=== PATIENT | female | born 1965 | race Caucasian/White ===

== ENCOUNTER 2016-05-15 08:28 | Emergency (ER) ==
[2016-05-15] MEDS ORDERED: NS 3,000 ML IV ONE (08:52)
--- NOTE | 2016-05-15 08:59 | PROVIDER DOCUMENTATION ---
HPI-Syncope/Dizziness - General Chief Complaint: Syncope Stated Complaint: POSS DEHYDRATION Time Seen by Provider: 05/15/16 08:48 Source: patient Allergies/Adverse Reactions: Patient Allergies Allergy/AdvReac Type Severity Reaction Status Date / Time No Known Allergies Allergy Verified 09/18/15 06:16 Home Medications: Home Medication List Medication Instructions Recorded Confirmed Last Taken Type No Home Medications 09/08/15 05/15/16 Unknown History - History of Present Illness-Syncope/Dizzy Nature of Presenting Problem: Pt vomited 7 times yesterday and had nothing to drink plus had 2 diarrhea stools then this morning while in the shower got light-headed so sat down and the passed out 2x when her came in. She thinks that she is just dehydrated Review of Systems - Adult - REVIEW OF SYSTEMS - ADULT Constitutional: denies: chills, fever Eyes: denies: discharge, decreased vision Ears, Nose, Mouth & Throat: denies: ear pain, epistaxis, throat pain Cardiovascular: denies: chest pain, irregular heart rate Respiratory: denies: chronic cough, hemoptysis Gastrointestinal: denies: hematemesis, difficulty swallowing, rectal bleeding Genitourinary: denies: discharge, frequent UTI's, hematuria Musculoskeletal: denies: bone pain, joint pain, muscle weakness Integumentary: denies: itching, nail changes, rash Neurological: denies: loss of balance, paresthesia, slurred speech Endocrine: denies: goiter, cold intolerance, heat intolerance Hematologic/Lymphatic: denies: low blood count, lymphedema Allergic/Immunologic: denies: eczema, frequent infections, hives Past History - Adult - PAST MEDICAL HISTORY-ADULT Review of Records: reports: Nursing Assessment Review, Medications Reviewed - PRIOR SURGERIES/PROCEDURES Surgical/Procedure History: reports: other (augmentation mammoplasty and uterine ablation) - SOCIAL HISTORY Smoking: denies Substance Use: none/never Alcohol Use Frequency: never Physical Exam-General - CONSTITUTIONAL General Appearance: appears well, no apparent distress - EYES Eyes: PERRL/EOMI, pink conjunctivae - HEAD, EARS, NOSE, MOUTH & THROAT HENMT: normocephalic/atraumatic, moist mucous membranes, normal ENT inspection - NECK Neck: non-tender, full range of motion, supple, normal inspection - RESPIRATORY Respiratory: chest non-tender, lungs clear, normal breath sounds, no pleuratic chest pain, no respiratory distress, no accessory muscle use - CARDIOVASCULAR Cardiovascular: normal peripheral pulses, regular rate, rhythm, no edema, no gallop, no JVD, no murmur - CHEST (BREASTS) Chest/Breast: no tenderness - GASTROINTESTINAL (ABDOMEN) Abdominal Exam: normal bowel sounds, non tender, soft, no organomegaly - LYMPHATIC Lymphatic: no adenopathy, axilla node tender - MUSCULOSKELETAL Back Exam: normal inspection, no CVA tenderness, no vertebral tenderness, CVA tenderness Extremity: normal range of motion, non-tender, normal gait, normal inspection, no pedal edema - SKIN Integumentary: normal color, warm/dry, abrasion(s) - NEUROLOGIC Neurologic: assembler radio and electrical II-XII nml as tested, grossly normal, no motor/sensory deficits , abnormal cerebellar tests - PSYCHIATRIC Psych/Mental Status: normal mood/affect, normal thought content, normal thought process, oriented x 3 Progress - PLAN OF CARE/RESULTS Progress/Plan/Lab Results: Laboratory Tests 05/15/16 05/15/16 05/15/16 09:11 09:11 09:11 WBC 9.54 RBC 4.88 Hgb 15.4 Hct 45.2 MCV 92.6 MCH 31.6 H MCHC 34.1 RDW Std Deviation 13.4 Plt Count 186 MPV 10.6 H Immature Gran % (Auto) 0.2 Neut % (Auto) 91.1 H Lymph % (Auto) 4.1 L [place] % (Auto) 4.0 Eos % (Auto) 0.4 Baso % (Auto) 0.2 Immature Gran # (Auto) 0.02 Neut # (Auto) 8.69 H Lymph # (Auto) 0.39 L [place] # (Auto) 0.38 Eos # (Auto) 0.04 Baso # (Auto) 0.02 D-Dimer 0.13 Sodium 132 L Potassium 3.9 Chloride 96 L Carbon Dioxide 20 L Anion Gap 16 BUN 19 Creatinine 0.7 Estimated GFR/1.73 m2 > 60 BUN/Creatinine Ratio 27 Glucose 121 H Calculated Osmolality 268 Calcium 8.5 L Total Bilirubin 0.88 AST 27 ALT 18 Alkaline Phosphatase 43 Total Protein 7.3 Albumin 3.9 Globulin 3.4 Albumin/Globulin Ratio 1.1 Urine Source Urine Color Urine Turbidity Urine pH Ur Specific [place] Urine Protein Ur Glucose (Stick) Ur Ketones (Stick) Urine Blood Urine Nitrite Urine Bilirubin Urobilinogen Dipstick Urine Leukocytes Urine WBC (Auto) Urine RBC (Auto) U Epithel Cells (Auto) Urine Bacteria (Auto) 05/15/16 10:02 WBC RBC Hgb Hct MCV MCH MCHC RDW Std Deviation Plt Count MPV Immature Gran % (Auto) Neut % (Auto) Lymph % (Auto) [place] % (Auto) Eos % (Auto) Baso % (Auto) Immature Gran # (Auto) Neut # (Auto) Lymph # (Auto) [place] # (Auto) Eos # (Auto) Baso # (Auto) D-Dimer Sodium Potassium Chloride Carbon Dioxide Anion Gap BUN Creatinine Estimated GFR/1.73 m2 BUN/Creatinine Ratio Glucose Calculated Osmolality Calcium Total Bilirubin AST ALT Alkaline Phosphatase Total Protein Albumin Globulin Albumin/Globulin Ratio Urine Source CLEAN CATCH Urine Color YELLOW Urine Turbidity CLEAR Urine pH 5.5 Ur Specific [place] 1.028 Urine Protein TRACE A Ur Glucose (Stick) NEGATIVE Ur Ketones (Stick) NEGATIVE Urine Blood TRACE A Urine Nitrite NEGATIVE Urine Bilirubin NEGATIVE Urobilinogen Dipstick NORMAL Urine Leukocytes NEGATIVE Urine WBC (Auto) <10 Urine RBC (Auto) <10 U Epithel Cells (Auto) <10 Urine Bacteria (Auto) NEGATIVE Orders Category Date Time Status CBC WITH ELECTRONIC DIFF [HEME] Stat Lab 05/15/16 09:11 Completed CMP [COMPREHENSIVE METABOLIC PANEL] [CHEM] Stat Lab 05/15/16 09:11 Completed Ddimer [D-DIMER] [CHEM] Stat Lab 05/15/16 09:11 Completed UA NIMS W/REFLEX CULT [URINALYSIS] Stat Lab 05/15/16 10:02 Completed 0.9% Sodium Chloride Inj [Ns] 3,000 ml Med 05/15/16 08:52 Discontinued IV 999 mls/hr EKG [EKG] Stat Ther 05/15/16 09:02 Ordered Departure - Departure Time of Disposition Order: 10:36 DIAGNOSIS: Vaso vagal episode Disposition: HOME 01 Certified Medical Emergency: Emergent Condition: Stable Additional Instructions: ED Follow Up Instructions: You have been treated by a care provider in the Emergency Department. These instructions are being provided to you so you can have an understanding of how to care for yourself upon discharge. Upon discharge from the Emergency Department, you are responsible for making arrangements for follow-up care by a physician of your choice. Take all prescribed medications as directed. Return to the Emergency Department immediately for any new or worsening symptoms. You may call the Physician Referral phone number at [phone] to obtain a list of Physicians who are taking new patients.
[2016-05-15 09:40] LABS: BASO% 0.2 % (0.0-0.8); EOS# 0.04 X1000 (0.0-0.7); EOS% 0.4 % (0.0-10.0); HEMATOCRIT 45.2 % (37.0-47.0); HEMOGLOBIN 15.4 g/dL (12.0-16.0); IMM GRAN# 0.02 X1000 (0.0-0.04); IMM GRAN% 0.2 % (0.0-0.5); LYMPH# 0.39 X1000 (1.2-3.4); LYMPH% 4.1 % (20.5-51.1); MANUAL DIFF NEEDED? NO; MCH 31.6 PG (27-31); MCHC 34.1 g/dL (33-37); MCV 92.6 FL (81-99); MONO# 0.38 X1000 (0.11-0.59); MPV 10.6 FL (7.4-10.4); NEUT% 91.1 % (42.2-75.2); PLT 186 X1000 (130-400); RBC 4.88 XMIL (4.2-5.4)
[2016-05-15 10:14] LABS: URINE CULTURE NEEDED? NO; URINE MICRO REVIEW NEEDED? NO; URINE SOURCE CLEAN CATCH
[2016-05-15 10:16] LABS: AGAP 16; ALBUMIN 3.9 g/dL (3.5-5.0); ALKALINE PHOSPHATASE 43 U/L (32-104); BUN 19 mg/dL (8-22); CALCIUM 8.5 mg/dL (8.8-10.2); CHLORIDE 96 mmol/L (98-107); COSMO 268; GOT 27 U/L (10-30); GPT 18 U/L (10-36); POTASSIUM 3.9 mmol/L (3.5-5.1); SODIUM 132 mmol/L (136-145); TCO2 20 mmol/L (25-35); TOTAL BILIRUBIN 0.88 mg/dL (0.20-1.00); TOTAL PROTEIN 7.3 g/dL (6.3-8.3)
[2016-05-15 10:21] LABS: BILIRUBIN URINE NEGATIVE (NEGATIVE); BLOOD URINE TRACE (NEGATIVE); COLOR YELLOW; GLUCOSE URINE NEGATIVE (NEGATIVE); LEUKOCYTES URINE NEGATIVE (NEGATIVE); NITRITE URINE NEGATIVE (NEGATIVE); PH URINE 5.5; PROTEIN URINE TRACE mg/dL (NEGATIVE); SP GRAVITY URINE 1.028; TURBIDITY URINE CLEAR (CLEAR); UROBILINOGEN URINE NORMAL (NORMAL)
[2016-05-15 10:22] LABS: UR EPITHELIAL CELLS <10 /HPF (<10); URINE BACTERIA NEGATIVE /HPF; URINE RBC <10 /HPF (<10); URINE WBC <10 /HPF (<10)
--- NOTE | 2016-05-15 10:36 | ED EKG INTERP ---
EKG Interpretation - EKG Time of EKG reading by physician:: 07:40 EKG Read and Signed by:: Bertrand Ingram Rate: 85 (possible left atrial enlargement; abnormal QRS-T angle consider primary T wave abnormality) Rhythm: NSR Attestation - Scribe Verification/Attestation Scribe:: Shilpi Mobley Acting as Scribe for:: Bertrand Ingram Scribe documention review:: This chart was documented by a scribe and accurately reflects the service the provider performed and the decisions made by the provider.
[2016-05-15 11:02] VITALS: BP 122/78
--- NOTE | 2016-05-16 09:36 | EKG Report ---
Test Performed on : 05/15/2016 07:40:34 AM Test Reason : syncope Blood Pressure : / mmHG Vent. Rate : 085 BPM Atrial Rate : 085 BPM P-R Int : 178 ms QRS Dur : 084 ms QT Int : 368 ms P-R-T Axes : 069 064 -01 degrees QTc Int : 437 ms Normal sinus rhythm. Possible Left atrial enlargement Abnormal QRS-T angle, consider primary T wave abnormality Abnormal ECG No previous ECGs available Unconfirmed Result
== END 2016-05-15 11:02 | disposition home or self-care (01) ==
LOC: ED 08:28
DX: R55 Syncope and collapse (principal); R11.10 Vomiting, unspecified; R19.7 Diarrhea, unspecified; R42 Dizziness and giddiness
CPT/HCPCS: 80053; 81001; 85025; 85379; 93005; 99282; J7030